=== PATIENT | male | born 1945 | race Caucasian/White ===

== ENCOUNTER → 2024-07-04 | Day surgery (SDC) | payer MEDICARE ==
[2024-07-03 12:39] LABS: BASOPHILS # (AUTO) 0.1 (0.0-0.1); BASOPHILS % 1.1 % (0.0-1.0); EOSINOPHILS # (AUTO) 0.1 (0.0-0.4); EOSINOPHILS % 1.9 % (0.0-6.0); HEMATOCRIT 41.2 % (38.2-49.6); HEMOGLOBIN 13.5 g/dL (14.0-18.0); LYMPHOCYTES # (AUTO) 1.7 (1.0-3.2); LYMPHOCYTES % 31.8 % (18.0-39.1); MEAN CORPUSCULAR HGB CONC 32.8 g/dL (31-35); MEAN CORPUSCULAR VOLUME 116.1 fL (81-99); MONOCYTES # (AUTO) 0.7 (0.2-0.8); MONOCYTES % 12.5 % (4.4-11.3); NEUTROPHILS # (AUTO) 2.7 (2.1-6.9); NEUTROPHILS % 52.1 % (38.7-80.0); PLATELET COUNT 117 x10e3/uL (140-360); RED BLOOD COUNT 3.55 x10e6/uL (4.3-5.7); RED CELL DISTRIBUTION WIDTH 13.2 % (11.7-14.4); WHITE BLOOD COUNT 5.22 x10e3/uL (4.8-10.8)
[~2024-07-04] MED LIST: ASPIRIN81 MG PO; ATORVASTATIN CA10 MG PO; CYCLOPENTOLATE HCL 2% OPTH SOLN 2 ML BTL OP ONE; FENTANYL CITRATE/PF 100MCG/2 ML INJ ONE; FLOMAX0.4 MG PO; FOLIC ACID0.8 MG PO; GATIFLOXACIN(OPTH) 5 ML LIQD ONE; JARDIANCE25 MG PO; LIDOCAINE HCL 2% LOCAL INJ 5 ML SDV VIAL INJ ONE; LISINOPRIL2.5 MG PO; METFORMIN HCL500 M2 PO; METOPROLOL SUCC50 MG PO; MIRTAZAPINE45 MG PO; MULTI-VITAMIN1 EACH PO; PANTOPRAZOLE SO40 MG PO; PHENYLEPHRINE HCL 2 ML DROPS ONE; PRESERVISION A1 EAC2 PO; PROPOFOL IV EMULSION 10 MG/ML 20 ML VIAL ONE; TESTOSTERO200 MG/1 M SQ; TETRACAINE HCL 0.5% OPTH SOLN 4 ML BTL ONE
[2024-07-04] MEDS: LACTATED RINGER'S 1,000 ML ONE (10:17)
[2024-07-04 12:09] VITALS: TEMP 97.6
[2024-07-04 12:25] VITALS: BP 112/78; PULSE 90; RESP 15; O2SAT 99
== END | disposition home or self-care (01) ==
LOC: OR 07:46 → EDSEX 11:00
PROVIDERS: ATTEND Ophthalmology
DX: H25.11 Age-related nuclear cataract, right eye (principal); H21.81 Floppy iris syndrome; E11.9 Type 2 diabetes mellitus without complications; I10 Essential (primary) hypertension; E78.5 Hyperlipidemia, unspecified; N28.9 Disorder of kidney and ureter, unspecified; F32.A Depression, unspecified; Z01.810 Encounter for preprocedural cardiovascular examination; Z01.812 Encounter for preprocedural laboratory examination; Z79.82 Long term (current) use of aspirin; Z79.84 Long term (current) use of oral hypoglycemic drugs; Z79.899 Other long term (current) drug therapy
CPT/HCPCS: 36415 ×2; 66982; 82948; 85025; 93005; J2003; J2704; J3010; J7121; V2632

== ENCOUNTER 2024-10-20 08:02 | Inpatient (IN) | payer MEDICARE ==
[2024-10-20] VITALS (15 sets, daily range): BP systolic 115–165; BP diastolic 65–99; PULSE 106–127; RESP 14–23; TEMP 97.9–99.4; O2SAT 92–100
[~2024-10-20] VITALS: Ht 154.9 cm; Wt 76.7 kg
[~2024-10-20 08:02] MED LIST changes: -CYCLOPENTOLATE HCL 2% OPTH SOLN 2 ML BTL OP ONE; -FENTANYL CITRATE/PF 100MCG/2 ML INJ ONE; -GATIFLOXACIN(OPTH) 5 ML LIQD ONE; -LIDOCAINE HCL 2% LOCAL INJ 5 ML SDV VIAL INJ ONE; -PHENYLEPHRINE HCL 2 ML DROPS ONE; -PROPOFOL IV EMULSION 10 MG/ML 20 ML VIAL ONE; -TETRACAINE HCL 0.5% OPTH SOLN 4 ML BTL ONE
[2024-10-20] MEDS ORDERED: ONDANSETRON HCL INJ 2MG/ML 2ML 2 MG/ML VIAL ONE (08:22)
[2024-10-20] MEDS: ONDANSETRON HCL INJ 2MG/ML 2ML 2 MG/ML VIAL IV STA (08:23)
[2024-10-20] MEDS: SODIUM CHLORIDE 0.9% 1000ML 1,000 ML IV ONE (08:23)
[2024-10-20] MEDS ORDERED: SODIUM CHLORIDE 0.9% 1000ML 1,000 ML ONE (08:23)
[2024-10-20 08:33] LABS: BASOPHILS # (AUTO) 0.1 (0.0-0.1); BASOPHILS % 0.6 % (0.0-1.0); EOSINOPHILS # (AUTO) 0.1 (0.0-0.4); EOSINOPHILS % 0.5 % (0.0-6.0); HEMATOCRIT 42.3 % (38.2-49.6); HEMOGLOBIN 14.1 g/dL (14.0-18.0); LYMPHOCYTES # (AUTO) 1.3 (1.0-3.2); LYMPHOCYTES % 10.4 % (18.0-39.1); MEAN CORPUSCULAR HEMOGLOBIN 36.2 pg (28-32); MEAN CORPUSCULAR HGB CONC 33.3 g/dL (31-35); MEAN CORPUSCULAR VOLUME 108.7 fL (81-99); MONOCYTES % 15.9 % (4.4-11.3); NEUTROPHILS % 71.5 % (38.7-80.0); PLATELET COUNT 176 x10e3/uL (140-360); RED BLOOD COUNT 3.89 x10e6/uL (4.3-5.7); RED CELL DISTRIBUTION WIDTH 12.4 % (11.7-14.4); WHITE BLOOD COUNT 12.54 x10e3/uL (4.8-10.8)
[2024-10-20 08:58] LABS: ALBUMIN 3.3 g/dL (3.5-5.0); ALBUMIN/GLOBULIN RATIO 0.8 (0.8-2.0); ANION GAP 29.4 mmol/L (8-16); BILIRUBIN,TOTAL 1.5 mg/dL (0.2-1.2); CALCIUM 9.7 mg/dL (8.4-10.2); CREATININE, SERUM 1.73 mg/dL (0.72-1.25); TOTAL PROTEIN 7.7 g/dL (6.5-8.1)
[2024-10-20 09:01] LABS: POTASSIUM 3.4 mmol/L (3.5-5.1)
[2024-10-20 09:30] LABS: ETHANOL < 10.0 mg/dL (0.0-10.0); SALICYLATE < 5.0 mg/dL (0-30)
[2024-10-20] MEDS ORDERED: IOPAMIDOL 370 MG/ML 100 ML INFUS..BTL INJ ONE (10:08)
[2024-10-20 10:44] LABS: PLATELET ESTIMATE ADEQUATE; PLATELET MORPHOLOGY COMMENT NORMAL; RBC MORPHOLOGY COMMENT NORMAL
[2024-10-20] MEDS ORDERED: ONDANSETRON HCL INJ 2MG/ML 2ML 2 MG/ML VIAL IV PRN (11:30)
[2024-10-20] MEDS ORDERED: DEXTROSE 50% SYRINGE 50 ML IV PRN ×2 (11:30→13:15)
[2024-10-20] MEDS: SODIUM CHLORIDE 0.9% 1000ML 1,000 ML IV SCH (12:03)
[2024-10-20 12:42] LABS: BILIRUBIN,URINE SMALL (NEGATIVE); CLARITY,URINE CLEAR (CLEAR); COLOR,URINE YELLOW (YELLOW); LEUKOCYTE ESTERASE ,URINE NEGATIVE (NEGATIVE); NITRITE,URINE NEGATIVE (NEGATIVE); PH,URINE 6 (5 - 7); PROTEIN,URINE DIPSTICK NEGATIVE (NEGATIVE); URINE UROBILINOGEN 0.2 mg/dL (0.2 - 1)
[2024-10-20 12:43] LABS: GLUCOSE, URINE 500 (NEGATIVE); KETONES,URINE >=160 (NEGATIVE)
[2024-10-20 12:54] LABS: EPITHELIAL CELLS,URINE FEW /LPF; WBC,URINE (MAN) 0-5 /HPF (0-5)
[2024-10-20 12:55] LABS: CALCIUM OXALATE CRYSTALS,UR FEW (FEW); MUCUS,URINE FEW
[2024-10-20] MEDS: INSULIN REGULAR, HUMAN 3ML VL 100 UNIT in SODIUM CHLORIDE 0.9% 99 ML IV SCH (12:57)
[2024-10-20] MEDS ORDERED: DIPHENHYDRAMINE HCL 25 MG CAP PO PRN (13:15)
[2024-10-20] MEDS ORDERED: HYDRALAZINE HCL 20 MG/ML VIAL IV PRN (13:15)
[2024-10-20] MEDS ORDERED: SIMETHICONE 80 MG CHEW PO PRN (13:15)
[2024-10-20] MEDS ORDERED: LIDOCAINE 4% PATCH TP PRN (13:15)
[2024-10-20] MEDS ORDERED: ALBUTEROL/IPRATROPIUM 3 ML NEB NEB PRN (13:15)
[2024-10-20] MEDS ORDERED: BENZONATATE 100 MG CAP PO PRN (13:15)
[2024-10-20] MEDS ORDERED: DOCUSATE SODIUM 100 MG CAP PO PRN (13:15)
[2024-10-20 13:31] LABS: ANION GAP 22.1 mmol/L (8-16); CALCIUM 8.6 mg/dL (8.4-10.2); CREATININE, SERUM 1.36 mg/dL (0.72-1.25); MAGNESIUM 1.4 MG/DL (1.3-2.1)
[2024-10-20 13:33] LABS: POTASSIUM 3.1 mmol/L (3.5-5.1)
[2024-10-20] MEDS: DEXTROSE 5%/0.45% SOD CHL 1,000 ML IV SCH (14:22)
[2024-10-20] MEDS ORDERED: ENOXAPARIN SOD INJ 40 MG/0.4 ML SYR SC SCH (17:00)
[2024-10-20] MEDS: ENOXAPARIN SOD INJ 40 MG/0.4 ML SYR SC SCH (17:55)
[2024-10-20 19:09] LABS: ANION GAP 17.8 mmol/L (8-16); CALCIUM 8.3 mg/dL (8.4-10.2); CREATININE, SERUM 1.21 mg/dL (0.72-1.25); MAGNESIUM 1.2 MG/DL (1.3-2.1)
[2024-10-20 19:14] LABS: POTASSIUM 2.8 mmol/L (3.5-5.1)
[2024-10-20] MEDS: POTASSIUM CHLORIDE 20MEQ/100ML 200 ML IV PRN (19:37)
[2024-10-20] MEDS: ATORVASTATIN 10 MG TAB PO SCH (21:41)
[2024-10-20] MEDS: MAGNESIUM SULF 1GRAM/DEXTROSE 100 ML IV PRN (23:40)
[2024-10-21] VITALS (27 sets, daily range): BP systolic 88–153; BP diastolic 52–97; PULSE 104–130; RESP 12–23; TEMP 98–99; O2SAT 90–100
[2024-10-21 01:11] LABS: CALCIUM 8.7 mg/dL (8.4-10.2); CREATININE, SERUM 1.1 mg/dL (0.72-1.25); MAGNESIUM 1.6 MG/DL (1.3-2.1)
[2024-10-21 04:56] LABS: BASOPHILS # (AUTO) 0.1 (0.0-0.1); BASOPHILS % 0.5 % (0.0-1.0); EOSINOPHILS % 0.1 % (0.0-6.0); HEMATOCRIT 33.8 % (38.2-49.6); HEMOGLOBIN 11.4 g/dL (14.0-18.0); LYMPHOCYTES % 10.1 % (18.0-39.1); MEAN CORPUSCULAR HEMOGLOBIN 36.7 pg (28-32); MEAN CORPUSCULAR HGB CONC 33.7 g/dL (31-35); MEAN CORPUSCULAR VOLUME 108.7 fL (81-99); MONOCYTES # (AUTO) 1.6 (0.2-0.8); MONOCYTES % 16.5 % (4.4-11.3); NEUTROPHILS # (AUTO) 7.1 (2.1-6.9); PLATELET COUNT 140 x10e3/uL (140-360); RED BLOOD COUNT 3.11 x10e6/uL (4.3-5.7); RED CELL DISTRIBUTION WIDTH 13.1 % (11.7-14.4); WHITE BLOOD COUNT 9.91 x10e3/uL (4.8-10.8)
[2024-10-21 05:17] LABS: ALBUMIN 2.7 g/dL (3.5-5.0); ALBUMIN/GLOBULIN RATIO 0.8 (0.8-2.0); ANION GAP 11.7 mmol/L (8-16); CALCIUM 8.7 mg/dL (8.4-10.2); CREATININE, SERUM 1.03 mg/dL (0.72-1.25); TOTAL PROTEIN 6.2 g/dL (6.5-8.1)
[2024-10-21 05:22] LABS: POTASSIUM 2.7 mmol/L (3.5-5.1)
[2024-10-21 05:58] LABS: THYROID STIMULATING HORMONE 0.755 uIU/mL (0.350-4.940)
[2024-10-21 06:23] LABS: ABG HCO3 17 mmol/L (22-26); ABG PCO2 30 mmHg (35-45); ABG PH 7.37 (7.35-7.45); ABG PO2 82 mmHg (80-105); ABG TCO2 18
[2024-10-21] MEDS: POTASSIUM CHLORIDE 20 MEQ TAB CR PO ONE (06:38)
[2024-10-21] MEDS ORDERED: PANTOPRAZOLE SOD 40 MG TABEC PO SCH (07:30)
[2024-10-21 07:44] LABS: BAND NEUTROPHILS % (MANUAL) 5 %; LYMPHOCYTES % (MANUAL) 12 % (19-48); MONOCYTES % (MANUAL) 13 % (3.4-9.0); NEUTROPHILS % (MANUAL) 70 % (40-74)
[2024-10-21 07:45] LABS: PLATELET ESTIMATE ADEQUATE; PLATELET MORPHOLOGY COMMENT NORMAL
[2024-10-21] MEDS: TAMSULOSIN HCL 0.4 MG CAP PO SCH (08:43)
[2024-10-21] MEDS: PANTOPRAZOLE SOD 40 MG TABEC PO SCH (08:43)
[2024-10-21 09:17] LABS: CALCIUM 8.5 mg/dL (8.4-10.2); CREATININE, SERUM 1.02 mg/dL (0.72-1.25); MAGNESIUM 1.4 MG/DL (1.3-2.1)
[2024-10-21] MEDS: MUPIROCIN 2% OINT 22 GM TUBE TOP SCH (12:00)
[2024-10-21] MEDS: POTASSIUM CHLORIDE 20MEQ/100ML 100 ML ONE (15:34)
[2024-10-21] MEDS: MELATONIN 5 MG TABLET PO PRN (20:21)
[2024-10-22] VITALS (23 sets, daily range): BP systolic 91–133; BP diastolic 59–85; PULSE 101–134; RESP 15–37; TEMP 98.4–99.8; O2SAT 92–100
[2024-10-22 02:12] LABS: BASOPHILS # (AUTO) 0.1 (0.0-0.1); BASOPHILS % 0.7 % (0.0-1.0); EOSINOPHILS % 0.3 % (0.0-6.0); HEMOGLOBIN 11.2 g/dL (14.0-18.0); LYMPHOCYTES # (AUTO) 1.1 (1.0-3.2); LYMPHOCYTES % 11.1 % (18.0-39.1); MEAN CORPUSCULAR HGB CONC 33.9 g/dL (31-35); MEAN CORPUSCULAR VOLUME 108.9 fL (81-99); MONOCYTES # (AUTO) 1.3 (0.2-0.8); MONOCYTES % 13.7 % (4.4-11.3); NEUTROPHILS # (AUTO) 6.8 (2.1-6.9); NEUTROPHILS % 72.2 % (38.7-80.0); PLATELET COUNT 160 x10e3/uL (140-360); RED BLOOD COUNT 3.03 x10e6/uL (4.3-5.7); RED CELL DISTRIBUTION WIDTH 12.1 % (11.7-14.4); WHITE BLOOD COUNT 9.46 x10e3/uL (4.8-10.8)
[2024-10-22 06:49] LABS: BASOPHILS # (AUTO) 0.1 (0.0-0.1); BASOPHILS % 0.5 % (0.0-1.0); EOSINOPHILS % 0.2 % (0.0-6.0); HEMATOCRIT 30.4 % (38.2-49.6); LYMPHOCYTES # (AUTO) 0.8 (1.0-3.2); LYMPHOCYTES % 9.1 % (18.0-39.1); MEAN CORPUSCULAR HEMOGLOBIN 36.4 pg (28-32); MEAN CORPUSCULAR HGB CONC 32.9 g/dL (31-35); MEAN CORPUSCULAR VOLUME 110.5 fL (81-99); MONOCYTES # (AUTO) 1.4 (0.2-0.8); NEUTROPHILS # (AUTO) 6.9 (2.1-6.9); NEUTROPHILS % 74.5 % (38.7-80.0); PLATELET COUNT 131 x10e3/uL (140-360); RED BLOOD COUNT 2.75 x10e6/uL (4.3-5.7); RED CELL DISTRIBUTION WIDTH 12.3 % (11.7-14.4); WHITE BLOOD COUNT 9.21 x10e3/uL (4.8-10.8)
[2024-10-22 07:35] LABS: ANION GAP 13.3 mmol/L (8-16); CALCIUM 8.3 mg/dL (8.4-10.2); CREATININE, SERUM 0.82 mg/dL (0.72-1.25)
[2024-10-22 07:37] LABS: POTASSIUM 3.3 mmol/L (3.5-5.1)
[2024-10-22 08:02] LABS: MAGNESIUM 1.2 MG/DL (1.3-2.1); PHOSPHORUS 0.9 MG/DL (2.3-4.7)
[2024-10-22] MEDS ORDERED: DEXTROSE 50% SYRINGE 50 ML IV PRN (08:15)
[2024-10-22] MEDS: MAGNESIUM SULFATE 2GM/50ML 50 ML IV ONE ×2 (08:27→15:35)
[2024-10-22] MEDS: POTASSIUM CHLORIDE 20 MEQ TAB CR PO ONE (08:28)
[2024-10-22] MEDS: SODIUM BICARBONATE 8.4% SYRING 50 ML in SODIUM CHLORIDE 0.45% 1,000 ML IV ONE (08:39)
[2024-10-22 09:58] LABS: BAND NEUTROPHILS % (MANUAL) 3 %; LYMPHOCYTES % (MANUAL) 12 % (19-48); MONOCYTES % (MANUAL) 10 % (3.4-9.0); NEUTROPHILS % (MANUAL) 75 % (40-74)
[2024-10-22 09:59] LABS: PLATELET ESTIMATE ADEQUATE; PLATELET MORPHOLOGY COMMENT NORMAL
[2024-10-22 10:09] LABS: LYMPHOCYTES % (MANUAL) 13 % (19-48); MONOCYTES % (MANUAL) 12 % (3.4-9.0); NEUTROPHILS % (MANUAL) 75 % (40-74); PLATELET ESTIMATE ADEQUATE; PLATELET MORPHOLOGY COMMENT NORMAL
[2024-10-22] MEDS: FUROSEMIDE INJ 10 MG/ML 4 ML VIAL IV ONE (10:55)
[2024-10-22] MEDS: INSULIN REGULAR, HUMAN 100 UNIT/1 ML SQ SCH (11:30)
[2024-10-22] MEDS ORDERED: ALBUTEROL/IPRATROPIUM 3 ML NEB NEB ONE (12:45)
[2024-10-22] MEDS: METOPROLOL SUCCINATE 50 MG TAB XL PO SCH (15:36)
[2024-10-22] MEDS: SODIUM BICARBONATE 8.4% VIAL 150 ML in DEXTROSE 5% 1,000 ML IV SCH (15:44)
[2024-10-22] MEDS: POTASSIUM PHOSPHATE 15 MM in SODIUM CHLORIDE 0.9% 250ML 250 ML IV ONE (15:44)
[2024-10-22] MEDS: LEVALBUTEROL HCL SOLN NEBU 1.25 MG/3 ML NEB INH PRN (16:04)
[2024-10-22] MEDS ORDERED: SODIUM CHLORIDE 0.9% 100 ML ONE (18:21)
[2024-10-22] MEDS ORDERED: IOPAMIDOL 370 MG/ML 100 ML INFUS..BTL INJ ONE (18:22)
[2024-10-22] MEDS: SODIUM BICARBONATE 8.4% SYRING 0 ML ONE (22:53)
[2024-10-22] MEDS: DEXTROSE 5% 0 ML IV ONE (22:54)
[2024-10-23] VITALS (25 sets, daily range): BP systolic 81–118; BP diastolic 51–94; PULSE 89–123; RESP 15–24; TEMP 97–98.7; O2SAT 91–100
[2024-10-23 06:23] LABS: BASOPHILS % 0.4 % (0.0-1.0); EOSINOPHILS % 0.1 % (0.0-6.0); HEMATOCRIT 25.5 % (38.2-49.6); HEMOGLOBIN 8.9 g/dL (14.0-18.0); LYMPHOCYTES # (AUTO) 0.7 (1.0-3.2); LYMPHOCYTES % 7.4 % (18.0-39.1); MEAN CORPUSCULAR HEMOGLOBIN 36.6 pg (28-32); MEAN CORPUSCULAR HGB CONC 34.9 g/dL (31-35); MEAN CORPUSCULAR VOLUME 104.9 fL (81-99); MONOCYTES # (AUTO) 1.1 (0.2-0.8); MONOCYTES % 11.9 % (4.4-11.3); NEUTROPHILS # (AUTO) 7.1 (2.1-6.9); NEUTROPHILS % 79.4 % (38.7-80.0); PLATELET COUNT 134 x10e3/uL (140-360); RED BLOOD COUNT 2.43 x10e6/uL (4.3-5.7); RED CELL DISTRIBUTION WIDTH 12.2 % (11.7-14.4); WHITE BLOOD COUNT 8.94 x10e3/uL (4.8-10.8)
[2024-10-23 07:00] LABS: ALBUMIN 2.3 g/dL (3.5-5.0); ALBUMIN/GLOBULIN RATIO 0.7 (0.8-2.0); ANION GAP 14.7 mmol/L (8-16); BILIRUBIN,TOTAL 0.7 mg/dL (0.2-1.2); CALCIUM 8.3 mg/dL (8.4-10.2); CREATININE, SERUM 1.08 mg/dL (0.72-1.25); POTASSIUM 3.7 mmol/L (3.5-5.1); TOTAL PROTEIN 5.5 g/dL (6.5-8.1)
[2024-10-23 07:15] LABS: PHOSPHORUS 1.8 MG/DL (2.3-4.7)
[2024-10-23 10:42] LABS: LYMPHOCYTES % (MANUAL) 12 % (19-48); MONOCYTES % (MANUAL) 7 % (3.4-9.0); NEUTROPHILS % (MANUAL) 81 % (40-74); PLATELET ESTIMATE SLIGHTLY DECREASED; PLATELET MORPHOLOGY COMMENT NORMAL; RBC MORPHOLOGY COMMENT NORMAL
[2024-10-23] MEDS ORDERED: ALBUMIN 25% 25GM 100ML 0.25 GM/ML BTL IV ONE (12:00)
[2024-10-23] MEDS: ALBUMIN 25% 25GM 100ML 100 ML IV ONE (12:14)
[2024-10-23 13:18] LABS: HEMOGLOBIN 7.8 g/dL (14.0-18.0)
[2024-10-23] MEDS: MIDODRINE HCL 5 MG TABLET PO SCH (13:28)
[2024-10-23] MEDS: SODIUM CHLORIDE 0.9% 500ML 500 ML IV ONE (13:28)
[2024-10-23] MEDS: SODIUM BICARBONATE 650 MG TAB PO SCH (16:56)
[2024-10-23 18:00] LABS: BASOPHILS % 0.1 % (0.0-1.0); EOSINOPHILS % 0.5 % (0.0-6.0); HEMATOCRIT 22.4 % (38.2-49.6); HEMOGLOBIN 7.6 g/dL (14.0-18.0); LYMPHOCYTES # (AUTO) 0.6 (1.0-3.2); LYMPHOCYTES % 7.4 % (18.0-39.1); MEAN CORPUSCULAR HEMOGLOBIN 35.7 pg (28-32); MEAN CORPUSCULAR HGB CONC 33.9 g/dL (31-35); MEAN CORPUSCULAR VOLUME 105.2 fL (81-99); MONOCYTES # (AUTO) 0.9 (0.2-0.8); MONOCYTES % 11.4 % (4.4-11.3); NEUTROPHILS # (AUTO) 6.3 (2.1-6.9); NEUTROPHILS % 79.5 % (38.7-80.0); PLATELET COUNT 117 x10e3/uL (140-360); RED BLOOD COUNT 2.13 x10e6/uL (4.3-5.7); RED CELL DISTRIBUTION WIDTH 12.5 % (11.7-14.4); WHITE BLOOD COUNT 7.98 x10e3/uL (4.8-10.8)
[2024-10-23 18:14] LABS: INR 1.2; PROTHROMBIN TIME 16.3 seconds (11.9-14.5)
[2024-10-24] VITALS (13 sets, daily range): BP systolic 96–133; BP diastolic 68–79; PULSE 112–119; RESP 16–25; TEMP 98.3–99.9; O2SAT 93–99
[2024-10-24] MEDS: THIAMINE HCL INJ 100 MG/ML 2ML VIAL IV ONE (03:13)
[2024-10-24 06:57] LABS: BASOPHILS % 0.4 % (0.0-1.0); EOSINOPHILS # (AUTO) 0.1 (0.0-0.4); EOSINOPHILS % 0.7 % (0.0-6.0); HEMATOCRIT 21.7 % (38.2-49.6); HEMOGLOBIN 7.5 g/dL (14.0-18.0); LYMPHOCYTES # (AUTO) 0.5 (1.0-3.2); MEAN CORPUSCULAR HEMOGLOBIN 36.8 pg (28-32); MEAN CORPUSCULAR HGB CONC 34.6 g/dL (31-35); MEAN CORPUSCULAR VOLUME 106.4 fL (81-99); MONOCYTES % 12.1 % (4.4-11.3); NEUTROPHILS # (AUTO) 6.4 (2.1-6.9); NEUTROPHILS % 79.3 % (38.7-80.0); PLATELET COUNT 114 x10e3/uL (140-360); RED BLOOD COUNT 2.04 x10e6/uL (4.3-5.7); RED CELL DISTRIBUTION WIDTH 12.4 % (11.7-14.4); WHITE BLOOD COUNT 8.02 x10e3/uL (4.8-10.8)
[2024-10-24 07:41] LABS: ALBUMIN 2.7 g/dL (3.5-5.0); ALBUMIN/GLOBULIN RATIO 0.9 (0.8-2.0); ANION GAP 15.2 mmol/L (8-16); CALCIUM 8.4 mg/dL (8.4-10.2); CREATININE, SERUM 0.87 mg/dL (0.72-1.25); MAGNESIUM 1.5 MG/DL (1.3-2.1); TOTAL PROTEIN 5.7 g/dL (6.5-8.1)
[2024-10-24 07:43] LABS: POTASSIUM 3.2 mmol/L (3.5-5.1)
[2024-10-24 07:53] LABS: BAND NEUTROPHILS % (MANUAL) 2 %; BASOPHILS % (MANUAL) 1 % (0-1.5); LYMPHOCYTES % (MANUAL) 3 % (19-48); MONOCYTES % (MANUAL) 4 % (3.4-9.0); NEUTROPHILS % (MANUAL) 90 % (40-74)
[2024-10-24 07:54] LABS: PLATELET ESTIMATE SLIGHTLY DECREASED; PLATELET MORPHOLOGY COMMENT NORMAL; RBC MORPHOLOGY COMMENT NORMAL
[2024-10-24 08:03] LABS: THYROID STIMULATING HORMONE 1.255 uIU/mL (0.350-4.940)
[2024-10-24] MEDS ORDERED: PIPERACILLIN/TAZOBACTAM 3.375 GM VIAL ONE (10:14)
[2024-10-24] MEDS: THIAMINE HCL INJ 100 MG/ML 2ML VIAL IV SCH (10:16)
[2024-10-24] MEDS: POTASSIUM PHOSPHATE 15 MM in SODIUM CHLORIDE 0.9% 250ML 250 ML IV ONE (19:51)
[2024-10-25] VITALS (9 sets, daily range): BP systolic 111–133; BP diastolic 64–90; PULSE 103–116; RESP 18–21; TEMP 98.3–100.9; O2SAT 95–100
[2024-10-25 07:49] LABS: BASOPHILS % 0.1 % (0.0-1.0); EOSINOPHILS # (AUTO) 0.1 (0.0-0.4); EOSINOPHILS % 1.1 % (0.0-6.0); HEMATOCRIT 22.5 % (38.2-49.6); HEMOGLOBIN 7.8 g/dL (14.0-18.0); LYMPHOCYTES # (AUTO) 0.6 (1.0-3.2); LYMPHOCYTES % 6.7 % (18.0-39.1); MEAN CORPUSCULAR HEMOGLOBIN 36.6 pg (28-32); MEAN CORPUSCULAR HGB CONC 34.7 g/dL (31-35); MEAN CORPUSCULAR VOLUME 105.6 fL (81-99); MONOCYTES # (AUTO) 1.2 (0.2-0.8); MONOCYTES % 13.3 % (4.4-11.3); NEUTROPHILS # (AUTO) 7.3 (2.1-6.9); NEUTROPHILS % 78.4 % (38.7-80.0); PLATELET COUNT 125 x10e3/uL (140-360); RED BLOOD COUNT 2.13 x10e6/uL (4.3-5.7); RED CELL DISTRIBUTION WIDTH 12.6 % (11.7-14.4); WHITE BLOOD COUNT 9.29 x10e3/uL (4.8-10.8)
[2024-10-25 08:35] LABS: INR 1.12; PROTHROMBIN TIME 15.4 seconds (11.9-14.5)
[2024-10-25 08:39] LABS: ANION GAP 16.1 mmol/L (8-16); CALCIUM 8.3 mg/dL (8.4-10.2); CREATININE, SERUM 0.84 mg/dL (0.72-1.25)
[2024-10-25 08:40] LABS: POTASSIUM 3.1 mmol/L (3.5-5.1)
[2024-10-25 09:00] LABS: LYMPHOCYTES % (MANUAL) 9 % (19-48); MONOCYTES % (MANUAL) 5 % (3.4-9.0); NEUTROPHILS % (MANUAL) 85 % (40-74); PLATELET ESTIMATE SLIGHTLY DECREASED; PLATELET MORPHOLOGY COMMENT NORMAL; REACTIVE LYMPHOCYTES 1
[2024-10-25 09:01] LABS: RBC MORPHOLOGY COMMENT NORMAL
[2024-10-25 11:16] LABS: MAGNESIUM 1.4 MG/DL (1.3-2.1); PHOSPHORUS 2.7 MG/DL (2.3-4.7)
[2024-10-25] MEDS ORDERED: PROPOFOL IV EMULSION 10 MG/ML 20 ML VIAL ONE (14:41)
[2024-10-25] MEDS ORDERED: LIDOCAINE HCL 2% LOCAL INJ 5 ML SDV VIAL INJ ONE (14:41)
[2024-10-25] MEDS ORDERED: PHENYLEPHRINE HCL 1% 10 MG/ML VIAL ONE (15:07)
[2024-10-25] MEDS ORDERED: SODIUM CHLORIDE 0.9% 100 ML ONE (15:07)
[2024-10-25] MEDS: SODIUM CHLORIDE 0.9% 250ML 250 ML ONE (16:42)
[2024-10-25] MEDS ORDERED: ACETAMINOPHEN 650 MG SUPP PR PRN (23:00)
[2024-10-26] VITALS (10 sets, daily range): BP systolic 123–138; BP diastolic 79–85; PULSE 97–114; RESP 17–20; TEMP 97.5–98.6; O2SAT 96–99
[2024-10-26] MEDS: ACETAMINOPHEN 1000 MG/100 ML IV PRN (00:14)
[2024-10-26] MEDS: SODIUM CHLORIDE 0.9% 1000ML 500 ML IV ONE (16:14)
[2024-10-26] MEDS: SODIUM CHLORIDE 0.9% 500ML 500 ML IV ONE (16:14)
[2024-10-27] VITALS (12 sets, daily range): BP systolic 110–132; BP diastolic 61–88; PULSE 92–112; RESP 17–21; TEMP 98–99.1; O2SAT 95–100
[2024-10-27 08:47] LABS: BASOPHILS # (AUTO) 0.1 (0.0-0.1); BASOPHILS % 0.5 % (0.0-1.0); EOSINOPHILS # (AUTO) 0.1 (0.0-0.4); EOSINOPHILS % 0.9 % (0.0-6.0); HEMATOCRIT 28.7 % (38.2-49.6); HEMOGLOBIN 9.4 g/dL (14.0-18.0); LYMPHOCYTES # (AUTO) 1.1 (1.0-3.2); MEAN CORPUSCULAR HEMOGLOBIN 35.7 pg (28-32); MEAN CORPUSCULAR HGB CONC 32.8 g/dL (31-35); MEAN CORPUSCULAR VOLUME 109.1 fL (81-99); MONOCYTES # (AUTO) 0.9 (0.2-0.8); MONOCYTES % 8.5 % (4.4-11.3); NEUTROPHILS # (AUTO) 8.6 (2.1-6.9); NEUTROPHILS % 78.9 % (38.7-80.0); PLATELET COUNT 194 x10e3/uL (140-360); RED BLOOD COUNT 2.63 x10e6/uL (4.3-5.7); RED CELL DISTRIBUTION WIDTH 13.1 % (11.7-14.4); WHITE BLOOD COUNT 10.88 x10e3/uL (4.8-10.8)
[2024-10-27 09:20] LABS: ANION GAP 18.8 mmol/L (8-16); CALCIUM 8.9 mg/dL (8.4-10.2); CREATININE, SERUM 0.91 mg/dL (0.72-1.25)
[2024-10-27 09:23] LABS: POTASSIUM 2.8 mmol/L (3.5-5.1)
[2024-10-27] MEDS: KCL 20 MEQ PACKET/ ORAL SOLN PEG STA (09:40)
[2024-10-27] MEDS: DEXTROSE 5% 1,000 ML IV SCH (10:39)
[2024-10-27] MEDS: ENOXAPARIN SOD INJ 40 MG/0.4 ML SYR SC SCH (17:35)
[2024-10-27] MEDS: KCL 20 MEQ PACKET/ ORAL SOLN NG ONE (17:35)
[2024-10-28] VITALS (12 sets, daily range): BP systolic 97–132; BP diastolic 55–78; PULSE 54–104; RESP 16–20; TEMP 98.1–99; O2SAT 96–100
[2024-10-28 06:12] LABS: BASOPHILS % 0.4 % (0.0-1.0); EOSINOPHILS # (AUTO) 0.1 (0.0-0.4); EOSINOPHILS % 1.6 % (0.0-6.0); HEMATOCRIT 24.7 % (38.2-49.6); HEMOGLOBIN 8.1 g/dL (14.0-18.0); LYMPHOCYTES # (AUTO) 1.4 (1.0-3.2); LYMPHOCYTES % 15.2 % (18.0-39.1); MEAN CORPUSCULAR HEMOGLOBIN 35.5 pg (28-32); MEAN CORPUSCULAR HGB CONC 32.8 g/dL (31-35); MEAN CORPUSCULAR VOLUME 108.3 fL (81-99); MONOCYTES # (AUTO) 0.8 (0.2-0.8); MONOCYTES % 8.4 % (4.4-11.3); NEUTROPHILS # (AUTO) 6.6 (2.1-6.9); NEUTROPHILS % 73.6 % (38.7-80.0); PLATELET COUNT 170 x10e3/uL (140-360); RED BLOOD COUNT 2.28 x10e6/uL (4.3-5.7); RED CELL DISTRIBUTION WIDTH 13.2 % (11.7-14.4)
[2024-10-28 06:24] LABS: ANION GAP 13.8 mmol/L (8-16); CALCIUM 8.6 mg/dL (8.4-10.2); CREATININE, SERUM 0.98 mg/dL (0.72-1.25); POTASSIUM 3.8 mmol/L (3.5-5.1)
[2024-10-28] MEDS: ACETAMINOPHEN 325 MG TAB PO PRN (12:04)
[2024-10-29] VITALS (9 sets, daily range): BP systolic 92–131; BP diastolic 49–70; PULSE 87–99; RESP 16–20; TEMP 97.9–100.3; O2SAT 95–98
[2024-10-29 06:15] LABS: BASOPHILS # (AUTO) 0.1 (0.0-0.1); BASOPHILS % 0.6 % (0.0-1.0); EOSINOPHILS # (AUTO) 0.2 (0.0-0.4); EOSINOPHILS % 2.1 % (0.0-6.0); HEMATOCRIT 26.4 % (38.2-49.6); HEMOGLOBIN 8.4 g/dL (14.0-18.0); LYMPHOCYTES # (AUTO) 1.2 (1.0-3.2); LYMPHOCYTES % 13.2 % (18.0-39.1); MEAN CORPUSCULAR HEMOGLOBIN 35.9 pg (28-32); MEAN CORPUSCULAR HGB CONC 31.8 g/dL (31-35); MEAN CORPUSCULAR VOLUME 112.8 fL (81-99); MONOCYTES # (AUTO) 0.5 (0.2-0.8); MONOCYTES % 6.1 % (4.4-11.3); NEUTROPHILS # (AUTO) 6.8 (2.1-6.9); NEUTROPHILS % 77.5 % (38.7-80.0); PLATELET COUNT 174 x10e3/uL (140-360); RED BLOOD COUNT 2.34 x10e6/uL (4.3-5.7); RED CELL DISTRIBUTION WIDTH 13.5 % (11.7-14.4); WHITE BLOOD COUNT 8.72 x10e3/uL (4.8-10.8)
[2024-10-29 06:42] LABS: ANION GAP 14.1 mmol/L (8-16); CALCIUM 8.5 mg/dL (8.4-10.2); CREATININE, SERUM 1.13 mg/dL (0.72-1.25); MAGNESIUM 1.6 MG/DL (1.3-2.1); PHOSPHORUS 1.9 MG/DL (2.3-4.7); POTASSIUM 4.1 mmol/L (3.5-5.1)
[2024-10-29 07:20] LABS: % IRON SATURATION 13 % (15-50); IRON 20 ug/dL (65-175); TOTAL IRON BINDING CAPACITY 154 ug/dL (261-478); TRANSFERRIN 110 mg/dL (174-364)
[2024-10-29 09:47] LABS: EOSINOPHILS % (MANUAL) 3 % (0-7); LYMPHOCYTES % (MANUAL) 15 % (19-48); MONOCYTES % (MANUAL) 11 % (3.4-9.0); NEUTROPHILS % (MANUAL) 71 % (40-74); PLATELET ESTIMATE ADEQUATE; PLATELET MORPHOLOGY COMMENT NORMAL; RBC MORPHOLOGY COMMENT ABNORMAL
[2024-10-29] MEDS: LACTATED RINGER'S 1,000 ML INJ ONE (12:49)
[2024-10-29] MEDS: METOCLOPRAMIDE HCL 10 MG/2ML VIAL IV ONE (12:49)
[2024-10-29] MEDS ORDERED: POTASSIUM PHOSPHATE 15 MM in SODIUM CHLORIDE 0.9% 250ML 250 ML IV SCH (14:15)
[2024-10-29 18:28] LABS: CLARITY,URINE SL CLOUDY (CLEAR); COLOR,URINE YELLOW (YELLOW); GLUCOSE, URINE NEGATIVE (NEGATIVE); LEUKOCYTE ESTERASE ,URINE NEGATIVE (NEGATIVE); NITRITE,URINE NEGATIVE (NEGATIVE); PH,URINE 7 (5 - 7); PROTEIN,URINE DIPSTICK TRACE (NEGATIVE)
[2024-10-29 18:29] LABS: BILIRUBIN,URINE NEGATIVE (NEGATIVE); KETONES,URINE NEGATIVE (NEGATIVE); URINE UROBILINOGEN 0.2 mg/dL (0.2 - 1)
[2024-10-29] MEDS: METOCLOPRAMIDE HCL 10 MG/2ML VIAL IV SCH (18:30)
[2024-10-29 18:40] LABS: BACTERIA,URINE RARE /HPF; RBC,URINE 21-50 /HPF (0-5); RENAL EPITHELIAL CELLS,URINE RARE
[2024-10-29] MEDS: POTASSIUM PHOSPHATE 15 MM in SODIUM CHLORIDE 0.9% 250ML 250 ML IV SCH (19:08)
[2024-10-30] VITALS (9 sets, daily range): BP systolic 101–126; BP diastolic 51–75; PULSE 93–111; RESP 17–20; TEMP 97.6–99.1; O2SAT 95–100
[2024-10-30 05:20] LABS: BASOPHILS % 0.5 % (0.0-1.0); EOSINOPHILS # (AUTO) 0.2 (0.0-0.4); HEMATOCRIT 24.7 % (38.2-49.6); LYMPHOCYTES # (AUTO) 1.3 (1.0-3.2); LYMPHOCYTES % 15.8 % (18.0-39.1); MEAN CORPUSCULAR HEMOGLOBIN 35.3 pg (28-32); MEAN CORPUSCULAR HGB CONC 31.6 g/dL (31-35); MEAN CORPUSCULAR VOLUME 111.8 fL (81-99); MONOCYTES # (AUTO) 0.5 (0.2-0.8); MONOCYTES % 6.7 % (4.4-11.3); NEUTROPHILS % 74.4 % (38.7-80.0); PLATELET COUNT 171 x10e3/uL (140-360); RED BLOOD COUNT 2.21 x10e6/uL (4.3-5.7); RED CELL DISTRIBUTION WIDTH 13.5 % (11.7-14.4); WHITE BLOOD COUNT 8.03 x10e3/uL (4.8-10.8)
[2024-10-30 05:26] LABS: HEMOGLOBIN 7.8 g/dL (14.0-18.0)
[2024-10-30 05:42] LABS: ANION GAP 13.6 mmol/L (8-16); CALCIUM 8.5 mg/dL (8.4-10.2); CREATININE, SERUM 1.08 mg/dL (0.72-1.25); MAGNESIUM 1.6 MG/DL (1.3-2.1); PHOSPHORUS 3.8 MG/DL (2.3-4.7); POTASSIUM 4.6 mmol/L (3.5-5.1)
[2024-10-30] MEDS: IRON SUCROSE 100 MG in SODIUM CHLORIDE 0.9% 100 ML IV SCH (09:27)
[2024-10-30] MEDS: HYDROCODONE/APAP 5MG-325MG TAB PO PRN (11:50)
[2024-10-30] MEDS ORDERED: IOPAMIDOL 370 MG/ML 100 ML INFUS..BTL INJ ONE (13:23)
[2024-10-30] MEDS: PYRIDOSTIGMINE BROMIDE 60 MG TAB PO SCH (14:11)
[2024-10-30] MEDS ORDERED: TAMSULOSIN HCL 0.4 MG CAP PEG SCH (21:00)
[2024-10-31] VITALS (10 sets, daily range): BP systolic 102–123; BP diastolic 61–87; PULSE 69–104; RESP 12–22; TEMP 97.7–99.6; O2SAT 93–100
[2024-10-31 06:49] LABS: BASOPHILS % 0.4 % (0.0-1.0); EOSINOPHILS # (AUTO) 0.1 (0.0-0.4); HEMATOCRIT 24.6 % (38.2-49.6); HEMOGLOBIN 7.7 g/dL (14.0-18.0); LYMPHOCYTES # (AUTO) 1.2 (1.0-3.2); LYMPHOCYTES % 16.8 % (18.0-39.1); MEAN CORPUSCULAR HGB CONC 31.3 g/dL (31-35); MEAN CORPUSCULAR VOLUME 111.8 fL (81-99); MONOCYTES # (AUTO) 0.6 (0.2-0.8); NEUTROPHILS # (AUTO) 5.1 (2.1-6.9); NEUTROPHILS % 72.1 % (38.7-80.0); PLATELET COUNT 189 x10e3/uL (140-360); RED CELL DISTRIBUTION WIDTH 13.6 % (11.7-14.4); WHITE BLOOD COUNT 7.04 x10e3/uL (4.8-10.8)
[2024-10-31 07:38] LABS: ANION GAP 13.3 mmol/L (8-16); CALCIUM 8.5 mg/dL (8.4-10.2); CREATININE, SERUM 1.04 mg/dL (0.72-1.25); POTASSIUM 4.3 mmol/L (3.5-5.1)
[2024-10-31] MEDS: TAMSULOSIN HCL 0.4 MG CAP PEG SCH (08:24)
[2024-10-31] MEDS ORDERED: LIDOCAINE HCL 2% LOCAL INJ 5 ML SDV VIAL INJ ONE (08:27)
[2024-10-31] MEDS ORDERED: SEVOFLURANE INHAL SOLN 250 ML PEN BTL ONE (08:27)
[2024-10-31] MEDS ORDERED: FENTANYL CITRATE/PF 100MCG/2 ML INJ ONE (08:27)
[2024-10-31] MEDS ORDERED: PROPOFOL IV EMULSION 10 MG/ML 20 ML VIAL ONE (08:27)
[2024-10-31] MEDS ORDERED: PHENYLEPHRINE HCL 1% 10 MG/ML VIAL ONE (09:11)
[2024-10-31] MEDS ORDERED: FAMOTIDINE 20 MG/2 ML VIAL IV ONE (09:20)
[2024-10-31] MEDS ORDERED: ONDANSETRON HCL INJ 2MG/ML 2ML 2 MG/ML VIAL ONE (09:20)
[2024-10-31] MEDS ORDERED: ACETAMINOPHEN 1000 MG/100 ML 100 ML IV ONE (09:20)
[2024-10-31 09:34] LABS: PLATELET ESTIMATE ADEQUATE; PLATELET MORPHOLOGY COMMENT NORMAL; RBC MORPHOLOGY COMMENT NORMAL
[2024-10-31] MEDS ORDERED: NOREPINEPHRINE 8 MG/D5W 250 ML 250 ML ONE (09:34)
[2024-10-31 10:34] LABS: HEPATITIS A ANTIBODY IGM (P) Negative; HEPATITIS B CORE IGM (P) Negative; HEPATITIS B SURFACE AG (P) Negative
[2024-10-31 10:38] LABS: HEPATITIS C ANTIBODY Non Reactive
[2024-10-31] MEDS: METOLAZONE 5 MG TAB PEG ONE (16:09)
[2024-11-01] VITALS (12 sets, daily range): BP systolic 96–117; BP diastolic 53–67; PULSE 70–113; RESP 12–20; TEMP 97.6–99.7; O2SAT 93–100
[2024-11-01 06:07] LABS: BASOPHILS % 0.3 % (0.0-1.0); EOSINOPHILS # (AUTO) 0.2 (0.0-0.4); EOSINOPHILS % 2.9 % (0.0-6.0); HEMATOCRIT 22.2 % (38.2-49.6); HEMOGLOBIN 7.2 g/dL (14.0-18.0); LYMPHOCYTES # (AUTO) 1.2 (1.0-3.2); LYMPHOCYTES % 19.2 % (18.0-39.1); MEAN CORPUSCULAR HEMOGLOBIN 35.3 pg (28-32); MEAN CORPUSCULAR HGB CONC 32.4 g/dL (31-35); MEAN CORPUSCULAR VOLUME 108.8 fL (81-99); MONOCYTES # (AUTO) 0.7 (0.2-0.8); MONOCYTES % 10.5 % (4.4-11.3); NEUTROPHILS # (AUTO) 4.2 (2.1-6.9); NEUTROPHILS % 66.5 % (38.7-80.0); RED BLOOD COUNT 2.04 x10e6/uL (4.3-5.7); RED CELL DISTRIBUTION WIDTH 13.5 % (11.7-14.4)
[2024-11-01 06:12] LABS: PLATELET COUNT 192 x10e3/uL (140-360)
[2024-11-01 06:33] LABS: ANION GAP 12.3 mmol/L (8-16); CALCIUM 8.1 mg/dL (8.4-10.2); CREATININE, SERUM 1.07 mg/dL (0.72-1.25)
[2024-11-01 06:35] LABS: POTASSIUM 3.3 mmol/L (3.5-5.1)
[2024-11-01 07:54] LABS: EOSINOPHILS % (MANUAL) 10 % (0-7); HYPOCHROMASIA SLIGHT; LYMPHOCYTES % (MANUAL) 20 % (19-48); MONOCYTES % (MANUAL) 11 % (3.4-9.0); NEUTROPHILS % (MANUAL) 59 % (40-74); PLATELET ESTIMATE ADEQUATE; PLATELET MORPHOLOGY COMMENT NORMAL
[2024-11-01] MEDS: POTASSIUM CHLORIDE 20 MEQ TAB CR PO PRN (08:43)
[2024-11-01] MEDS ORDERED: SODIUM CHLORIDE 0.9% 250ML 250 ML IV ONE (13:30)
[2024-11-01] MEDS ORDERED: KCL 20 MEQ PACKET/ ORAL SOLN PEG ONE (15:15)
[2024-11-01] MEDS ORDERED: OLANZAPINE 10 MG VIAL ONE (21:08)
[2024-11-01] MEDS: OLANZAPINE 10 MG VIAL IM ONE (21:16)
[2024-11-01] MEDS: LOPERAMIDE HCL 2 MG/15 ML UDC PEG PRN (22:08)
[2024-11-02] VITALS (8 sets, daily range): BP systolic 67–124; BP diastolic 49–79; PULSE 90–100; RESP 16–20; TEMP 97–99.4; O2SAT 97–100
[2024-11-02] MEDS ORDERED: OLANZAPINE 10 MG VIAL IM ONE (07:15)
[2024-11-02 12:35] LABS: HEMATOCRIT 28.4 % (38.2-49.6); HEMOGLOBIN 9.4 g/dL (14.0-18.0)
[2024-11-02 12:56] LABS: ANION GAP 12.4 mmol/L (8-16); CALCIUM 8.5 mg/dL (8.4-10.2); CREATININE, SERUM 1.02 mg/dL (0.72-1.25); POTASSIUM 4.4 mmol/L (3.5-5.1)
[2024-11-02] MEDS: SODIUM CHLORIDE 0.9% 1000ML 500 ML IV ONE (19:06)
[2024-11-03 04:10] VITALS: BP 110/57; PULSE 92; RESP 18; TEMP 98.1; O2SAT 95
[2024-11-03 06:30] VITALS: PULSE 85; RESP 22; O2SAT 97
[2024-11-03 08:19] VITALS: BP 99/64; PULSE 96; RESP 18; TEMP 99.1; O2SAT 98
[2024-11-03 12:42] VITALS: BP 100/58; PULSE 95; RESP 18; TEMP 98.3; O2SAT 98
[2024-11-03] MEDS ORDERED: DIPHENOXYLATE/ATROPINE TAB PO SCH (21:00)
[2024-11-18 14:48] LABS: ACETYLCHOLINE RECEPTOR BLOCKIN 20
[2024-11-18 14:50] LABS: ACETYLCHOLINE RECEPTOR MODULAT 3; ANTI-STRIATED MUSCLE AB Negative
== END 2024-11-03 15:40 | DRG 987 ==
LOC: ER 08:06 → ERHOLD 11:27 → ICU 16:32 → MED/SURG2 10-24 18:10
PROVIDERS: ADMIT Internal Medicine; ATTEND Internal Medicine
PROC: 4A133R1 Monitoring of Arterial Saturation, Peripheral, Percutaneous Approach (ICD-10-PCS; principal; 2024-10-20)
PROC: 30233K1 Transfusion of Nonautologous Frozen Plasma into Peripheral Vein, Percutaneous Approach (ICD-10-PCS; 2024-10-23)
PROC: 0DH63UZ Insertion of Feeding Device into Stomach, Percutaneous Approach (ICD-10-PCS; 2024-10-25)
PROC: 0DB68ZX Excision of Stomach, Via Natural or Artificial Opening Endoscopic, Diagnostic (ICD-10-PCS; 2024-10-25)
PROC: 0T788DZ Dilation of Bilateral Ureters with Intraluminal Device, Via Natural or Artificial Opening Endoscopic (ICD-10-PCS; 2024-10-31)
PROC: 0VNTXZZ Release Prepuce, External Approach (ICD-10-PCS; 2024-10-31)
PROC: 0TCB8ZZ Extirpation of Matter from Bladder, Via Natural or Artificial Opening Endoscopic (ICD-10-PCS; 2024-10-31)
PROC: 0TC78ZZ Extirpation of Matter from Left Ureter, Via Natural or Artificial Opening Endoscopic (ICD-10-PCS; 2024-10-31)
PROC: BT141ZZ Fluoroscopy of Kidneys, Ureters and Bladder using Low Osmolar Contrast (ICD-10-PCS; 2024-10-31)
PROC: 30233N1 Transfusion of Nonautologous Red Blood Cells into Peripheral Vein, Percutaneous Approach (ICD-10-PCS; 2024-11-02)
DX: E11.10 Type 2 diabetes mellitus with ketoacidosis without coma (principal); J69.0 Pneumonitis due to inhalation of food and vomit; K22.11 Ulcer of esophagus with bleeding; K21.01 Gastro-esophageal reflux disease with esophagitis, with bleeding; J90 Pleural effusion, not elsewhere classified; D68.9 Coagulation defect, unspecified; I47.10 Supraventricular tachycardia, unspecified; D62 Acute posthemorrhagic anemia; N13.2 Hydronephrosis with renal and ureteral calculous obstruction; K76.6 Portal hypertension; N17.9 Acute kidney failure, unspecified; E11.22 Type 2 diabetes mellitus with diabetic chronic kidney disease; E11.649 Type 2 diabetes mellitus with hypoglycemia without coma; E11.42 Type 2 diabetes mellitus with diabetic polyneuropathy; E83.39 Other disorders of phosphorus metabolism; R13.12 Dysphagia, oropharyngeal phase; K70.30 Alcoholic cirrhosis of liver without ascites; I12.9 Hypertensive chronic kidney disease with stage 1 through stage 4 chronic kidney disease, or unspecified chronic kidney disease; N40.1 Benign prostatic hyperplasia with lower urinary tract symptoms; E78.5 Hyperlipidemia, unspecified; N18.30 Chronic kidney disease, stage 3 unspecified; E86.0 Dehydration; I65.22 Occlusion and stenosis of left carotid artery; E83.42 Hypomagnesemia; K44.9 Diaphragmatic hernia without obstruction or gangrene; E87.6 Hypokalemia; K29.70 Gastritis, unspecified, without bleeding; F10.10 Alcohol abuse, uncomplicated; K31.89 Other diseases of stomach and duodenum; R31.0 Gross hematuria; K76.0 Fatty (change of) liver, not elsewhere classified; N28.1 Cyst of kidney, acquired; N47.5 Adhesions of prepuce and glans penis; N31.9 Neuromuscular dysfunction of bladder, unspecified; R33.8 Other retention of urine; Z79.82 Long term (current) use of aspirin; Z79.84 Long term (current) use of oral hypoglycemic drugs; Z79.890 Hormone replacement therapy; Z82.49 Family history of ischemic heart disease and other diseases of the circulatory system; Z83.3 Family history of diabetes mellitus; E66.9 Obesity, unspecified; Z68.31 Body mass index [BMI] 31.0-31.9, adult
CPT/HCPCS: 36415; 43246; 70450; 70486; 70496; 70498; 70551; 71045; 71260; 74177; 74230; 74420; 74470; 76604; 80048; 80053; 80061; 80320; 80329; 81001; 82550; 82607; 82746; 82805; 82948; 83036; 83519; 83540; 83605; 83615; 83690; 83735; 84100; 84443; 84466; 84484; 85014; 85018; 85025; 85045; 85610; 85730; 86255; 86850; 86900; 86920; 87040; 87086; 88300; 88305; 88342; 93005; 93306; 93880; 94640; 94799; 96372; 99252; 99284; C1758; C1769; C2617; J0690; J0696; J1308; J1650; J1756; J1938; J2003; J2371; J2405; J2470; J2543; J2765; J3411; J3475; J3480; J7030; J7040; J7050; J7070; P9016; P9017; P9047; Q9967

== ENCOUNTER 2024-11-19 20:54 | Emergency (ER) | payer OTHER ==
[~2024-11-19] VITALS: Ht 154.9 cm; Wt 76.7 kg
[2024-11-19 20:54] VITALS: TEMP 98.8
[2024-11-19] MEDS ORDERED: SODIUM CHLORIDE 0.9% 1000ML 1,000 ML ONE (21:06)
[2024-11-19] MEDS ORDERED: ADENOSINE 6MG/2ML 2 ML ONE (21:06)
[2024-11-19] MEDS: ADENOSINE 6 MG/2 ML VIAL IV ONE (21:15)
[2024-11-19 21:22] LABS: BASOPHILS # (AUTO) 0.1 (0.0-0.1); BASOPHILS % 0.4 % (0.0-1.0); EOSINOPHILS # (AUTO) 0.1 (0.0-0.4); EOSINOPHILS % 1.1 % (0.0-6.0); HEMATOCRIT 29.7 % (38.2-49.6); HEMOGLOBIN 9.9 g/dL (14.0-18.0); LYMPHOCYTES # (AUTO) 1.8 (1.0-3.2); LYMPHOCYTES % 15.2 % (18.0-39.1); MEAN CORPUSCULAR HEMOGLOBIN 33.6 pg (28-32); MEAN CORPUSCULAR HGB CONC 33.3 g/dL (31-35); MEAN CORPUSCULAR VOLUME 100.7 fL (81-99); MONOCYTES # (AUTO) 1.6 (0.2-0.8); MONOCYTES % 13.6 % (4.4-11.3); NEUTROPHILS # (AUTO) 8.2 (2.1-6.9); NEUTROPHILS % 68.6 % (38.7-80.0); PLATELET COUNT 272 x10e3/uL (140-360); RED BLOOD COUNT 2.95 x10e6/uL (4.3-5.7); RED CELL DISTRIBUTION WIDTH 16.2 % (11.7-14.4); WHITE BLOOD COUNT 11.97 x10e3/uL (4.8-10.8)
[2024-11-19 21:24] LABS: BILIRUBIN,URINE NEGATIVE (NEGATIVE); CLARITY,URINE SL CLOUDY (CLEAR); COLOR,URINE YELLOW (YELLOW); GLUCOSE, URINE NEGATIVE (NEGATIVE); KETONES,URINE NEGATIVE (NEGATIVE); LEUKOCYTE ESTERASE ,URINE SMALL (NEGATIVE); NITRITE,URINE NEGATIVE (NEGATIVE); PH,URINE 6 (5 - 7); PROTEIN,URINE DIPSTICK 2+ (NEGATIVE); URINE UROBILINOGEN 0.2 mg/dL (0.2 - 1)
[2024-11-19] MEDS: SODIUM CHLORIDE 0.9% 1000ML 1,000 ML IV ONE (21:25)
[2024-11-19 21:43] LABS: BACTERIA,URINE MANY /HPF; EPITHELIAL CELLS,URINE FEW /LPF
[2024-11-19 22:54] LABS: ALBUMIN 2.2 g/dL (3.5-5.0); ALBUMIN/GLOBULIN RATIO 0.4 (0.8-2.0); ANION GAP 13.2 mmol/L (8-16); BILIRUBIN,TOTAL 0.9 mg/dL (0.2-1.2); CREATININE, SERUM 0.72 mg/dL (0.72-1.25); POTASSIUM 4.2 mmol/L (3.5-5.1); TOTAL PROTEIN 7.3 g/dL (6.5-8.1)
[2024-11-19 23:00] LABS: TROPONIN I 0.052 ng/mL (0-0.300)
[2024-11-19] MEDS ORDERED: CEFDINIR300 MG PEG (23:53)
[2024-11-20 01:00] VITALS: PULSE 91; RESP 20
[2024-11-20 02:11] VITALS: BP 99/58; PULSE 91; RESP 20; O2SAT 99
== END 2024-11-20 02:01 ==
LOC: ER 21:07
DX: I47.10 Supraventricular tachycardia, unspecified (principal); N39.0 Urinary tract infection, site not specified; I10 Essential (primary) hypertension; E11.9 Type 2 diabetes mellitus without complications; K76.9 Liver disease, unspecified; R94.31 Abnormal electrocardiogram [ECG] [EKG]
CPT/HCPCS: 36415; 71045; 80053; 81001; 82550; 84484; 85025; 87086; 93005 ×2; 99284; J0153; J0696; J7030

== ENCOUNTER 2024-12-19 09:14 | Inpatient (IN) | payer MEDICARE ==
[~2024-12-19] VITALS: Ht 170.2 cm; Wt 76.2 kg
[2024-12-19] VITALS (9 sets, daily range): BP systolic 94–114; BP diastolic 56–74; PULSE 71–109; RESP 15–21; TEMP 98.3–99.2; O2SAT 95–100
[~2024-12-19 09:14] MED LIST changes: +CEFDINIR300 MG PEG
[2024-12-19] MEDS: MEROPENEM 1 GM in SODIUM CHLORIDE 0.9% 100 ML IV ONE (10:30)
[2024-12-19] MEDS: SODIUM CHLORIDE 0.9% 1000ML 1,000 ML IV STA (10:30)
[2024-12-19 10:37] LABS: BASOPHILS % 0.1 % (0.0-1.0); EOSINOPHILS % 0.0 % (0.0-6.0); LYMPHOCYTES % 4.2 % (18.0-39.1); MONOCYTES % 9.0 % (4.4-11.3); NEUTROPHILS % 86.1 % (38.7-80.0); RED CELL DISTRIBUTION WIDTH 14.9 % (11.7-14.4)
[2024-12-19 11:14] LABS: EST GLOMERULAR FILTRATION RATE 52.0 ML/MIN (>=60)
[2024-12-19 11:16] LABS: INR 1.12
[2024-12-19] MEDS: Vancomycin IV 1 GM in SODIUM CHLORIDE 0.9% 250ML 250 ML IV ONE (11:40)
[2024-12-19 11:44] LABS: LEUKOCYTE ESTERASE ,URINE LARGE (NEGATIVE); PROTEIN,URINE DIPSTICK >=300 (NEGATIVE)
[2024-12-19 11:45] LABS: EPITHELIAL CELLS,URINE FEW /LPF; URINE UROBILINOGEN 0.2 mg/dL (0.2 - 1); WBC,URINE (MAN) >50 /HPF (0-5)
[2024-12-19 12:05] LABS: BAND NEUTROPHILS % (MANUAL) 1 %; LYMPHOCYTES % (MANUAL) 7 % (19-48); MONOCYTES % (MANUAL) 5 % (3.4-9.0); NEUTROPHILS % (MANUAL) 87 % (40-74); PLATELET ESTIMATE ADEQUATE; PLATELET MORPHOLOGY COMMENT NORMAL; RBC MORPHOLOGY COMMENT NORMAL
[2024-12-19] MEDS: SODIUM CHLORIDE 0.9% 500ML 500 ML IV ONE (12:40)
[2024-12-19] MEDS: ACETAMINOPHEN 1000 MG/100 ML IV STA (12:40)
[2024-12-19] MEDS ORDERED: SODIUM CHLORIDE 0.9% 1000ML 1,000 ML ONE (13:37)
[2024-12-19] MEDS: SODIUM CHLORIDE 0.9% 1000ML 1,980 ML IV SCH (14:49)
[2024-12-19] MEDS: SODIUM CHLORIDE 0.9% 1000ML 1,000 ML IV SCH (14:56)
[2024-12-19] MEDS ORDERED: SODIUM CHLORIDE 0.9% 1000ML 1,000 ML IV SCH (15:00)
[2024-12-19] MEDS: NOREPINEPHRINE 8 MG/D5W 250 ML 250 ML IV SCH (15:11)
[2024-12-19] MEDS ORDERED: HYDRALAZINE HCL 20 MG/ML VIAL IV PRN (15:15)
[2024-12-19] MEDS ORDERED: DOCUSATE SODIUM 100 MG CAP PO PRN (15:15)
[2024-12-19] MEDS ORDERED: DIPHENHYDRAMINE HCL 25 MG CAP PO PRN (15:15)
[2024-12-19] MEDS ORDERED: ONDANSETRON HCL INJ 2MG/ML 2ML 2 MG/ML VIAL IV PRN (15:15)
[2024-12-19] MEDS ORDERED: LIDOCAINE 4% PATCH TP PRN (15:15)
[2024-12-19] MEDS ORDERED: SIMETHICONE 80 MG CHEW PO PRN (15:15)
[2024-12-19] MEDS ORDERED: BENZONATATE 100 MG CAP PO PRN (15:15)
[2024-12-19] MEDS ORDERED: ALBUTEROL/IPRATROPIUM 3 ML NEB NEB PRN (15:15)
[2024-12-19] MEDS ORDERED: POTASSIUM CHLORIDE 20 MEQ TAB CR PO PRN (15:15)
[2024-12-19] MEDS ORDERED: DEXTROSE 50% SYRINGE 50 ML IV PRN (15:15)
[2024-12-19] MEDS ORDERED: MELATONIN 5 MG TABLET PO PRN (15:15)
[2024-12-19] MEDS ORDERED: MEROPENEM 1 GM in SODIUM CHLORIDE 0.9% 100 ML IV SCH (18:00)
[2024-12-19] MEDS: LACTATED RINGER'S 1,000 ML INJ ONE (18:13)
[2024-12-19] MEDS: ENOXAPARIN SOD INJ 40 MG/0.4 ML SYR SC SCH (22:35)
[2024-12-19] MEDS: MEROPENEM 1 GM in SODIUM CHLORIDE 0.9% 100 ML IV SCH (22:36)
[2024-12-19] MEDS: ACETAMINOPHEN 325 MG TAB PO PRN (22:37)
[2024-12-19] MEDS: ATORVASTATIN 10 MG TAB PO SCH (22:39)
[2024-12-20] VITALS (83 sets, daily range): BP systolic 78–138; BP diastolic 44–107; PULSE 90–154; RESP 13–32; TEMP 97–103.2; O2SAT 91–100
[2024-12-20 05:25] LABS: BASOPHILS % 0.1 % (0.0-1.0); EOSINOPHILS % 0.0 % (0.0-6.0); LYMPHOCYTES % 2.0 % (18.0-39.1); MONOCYTES % 4.9 % (4.4-11.3); NEUTROPHILS % 87.0 % (38.7-80.0); RED CELL DISTRIBUTION WIDTH 14.8 % (11.7-14.4)
[2024-12-20 06:01] LABS: EST GLOMERULAR FILTRATION RATE 60.0 ML/MIN (>=60)
[2024-12-20] MEDS ORDERED: PANTOPRAZOLE SOD 40 MG TABEC PO SCH (07:30)
[2024-12-20] MEDS: INSULIN REGULAR, HUMAN 100 UNIT/1 ML SQ SCH (07:30)
[2024-12-20] MEDS ORDERED: DEXTROSE 50% SYRINGE 50 ML IV PRN (07:30)
[2024-12-20 08:05] LABS: ABG BASE EXCESS -9.0 mmol/L (-2 - 3); ABG HCO3 15 mmol/L (22-26); ABG OXYGEN SATURATION 95.0 % (95-98); ABG PCO2 23 mmHg (35-45); ABG PH 7.44 (7.35-7.45); ABG PO2 70 mmHg (80-105); ABG TCO2 16
[2024-12-20] MEDS: SODIUM BICARBONATE 8.4% IV SCH (08:19)
[2024-12-20] MEDS: STERILE WATER IV SCH (08:19)
[2024-12-20 09:26] LABS: PHOSPHORUS 2.8 MG/DL (2.3-4.7)
[2024-12-20 09:48] LABS: CHOL/HDL RATIO 3.5 (3.9-4.7); LDL CHOLESTEROL 35.0 MG/DL (60-130)
[2024-12-20 11:03] LABS: BAND NEUTROPHILS % (MANUAL) 10 %; LYMPHOCYTES % (MANUAL) 2 % (19-48); MONOCYTES % (MANUAL) 6 % (3.4-9.0); NEUTROPHILS % (MANUAL) 82 % (40-74); PLATELET ESTIMATE SLIGHTLY DECREASED; PLATELET MORPHOLOGY COMMENT NORMAL; RBC MORPHOLOGY COMMENT ABNORMAL
[2024-12-20 15:29] LABS: EST GLOMERULAR FILTRATION RATE 81.0 ML/MIN (>=60)
[2024-12-20] MEDS ORDERED: MESTINON60 MG PO (18:51)
[2024-12-20] MEDS ORDERED: FLOMAX0.4 MG PEG (20:58)
[2024-12-21] VITALS (62 sets, daily range): BP systolic 87–147; BP diastolic 53–121; PULSE 91–120; RESP 14–33; TEMP 98.2–101.6; O2SAT 95–100
[2024-12-21 07:05] LABS: BASOPHILS % 0.4 % (0.0-1.0); EOSINOPHILS % 0.1 % (0.0-6.0); LYMPHOCYTES % 4.2 % (18.0-39.1); MONOCYTES % 6.1 % (4.4-11.3); NEUTROPHILS % 88.4 % (38.7-80.0); RED CELL DISTRIBUTION WIDTH 15.2 % (11.7-14.4)
[2024-12-21 07:32] LABS: EST GLOMERULAR FILTRATION RATE 69.0 ML/MIN (>=60)
[2024-12-21] MEDS: SODIUM CHLORIDE 0.9% 1000ML 1,000 ML IV ONE (08:53)
[2024-12-21] MEDS: COLLAGENASE 5 GM TUBE TOP SCH (09:00)
[2024-12-21 12:42] LABS: LYMPHOCYTES % (MANUAL) 4 % (19-48); MONOCYTES % (MANUAL) 5 % (3.4-9.0); NEUTROPHILS % (MANUAL) 91 % (40-74); PLATELET ESTIMATE SLIGHTLY DECREASED; PLATELET MORPHOLOGY COMMENT NORMAL; RBC MORPHOLOGY COMMENT NORMAL
[2024-12-21] MEDS: MUPIROCIN 2% OINT 22 GM TUBE TOP SCH (15:57)
[2024-12-22] VITALS (26 sets, daily range): BP systolic 94–136; BP diastolic 53–95; PULSE 88–109; RESP 16–23; TEMP 98.2–100.1; O2SAT 95–99
[2024-12-22] MEDS: SODIUM CHLORIDE 0.9% 1000ML 1,000 ML ONE (01:14)
[2024-12-22 06:52] LABS: BASOPHILS % 0.6 % (0.0-1.0); EOSINOPHILS % 0.3 % (0.0-6.0); LYMPHOCYTES % 6.7 % (18.0-39.1); MONOCYTES % 10.9 % (4.4-11.3); NEUTROPHILS % 81.1 % (38.7-80.0); RED CELL DISTRIBUTION WIDTH 15.2 % (11.7-14.4)
[2024-12-22 07:10] LABS: EST GLOMERULAR FILTRATION RATE 74.0 ML/MIN (>=60)
[2024-12-23] VITALS (25 sets, daily range): BP systolic 94–159; BP diastolic 60–94; PULSE 83–108; RESP 14–21; TEMP 97.7–100; O2SAT 91–100
[2024-12-23 05:05] LABS: BASOPHILS % 0.2 % (0.0-1.0); EOSINOPHILS % 0.8 % (0.0-6.0); LYMPHOCYTES % 10.6 % (18.0-39.1); MONOCYTES % 15.5 % (4.4-11.3); NEUTROPHILS % 72.3 % (38.7-80.0); RED CELL DISTRIBUTION WIDTH 15.7 % (11.7-14.4)
[2024-12-23 05:33] LABS: EST GLOMERULAR FILTRATION RATE 71.0 ML/MIN (>=60)
[2024-12-23] MEDS: SODIUM BICARBONATE 8.4% VIAL 50 ML in SODIUM CHLORIDE 0.45% 1,000 ML IV ONE (09:49)
[2024-12-23] MEDS: TAMSULOSIN HCL 0.4 MG CAP PEG SCH (23:05)
[2024-12-24] VITALS (14 sets, daily range): BP systolic 105–127; BP diastolic 59–76; PULSE 72–101; RESP 18–20; TEMP 97.7–99.1; O2SAT 94–100
[2024-12-24 06:36] LABS: BASOPHILS % 0.2 % (0.0-1.0); EOSINOPHILS % 0.9 % (0.0-6.0); LYMPHOCYTES % 12.5 % (18.0-39.1); MONOCYTES % 13.3 % (4.4-11.3); NEUTROPHILS % 72.0 % (38.7-80.0); RED CELL DISTRIBUTION WIDTH 15.7 % (11.7-14.4)
[2024-12-24 07:14] LABS: EST GLOMERULAR FILTRATION RATE 76.0 ML/MIN (>=60)
[2024-12-25] VITALS (7 sets, daily range): BP systolic 117–129; BP diastolic 64–77; PULSE 74–105; RESP 17–22; TEMP 98.4–98.9; O2SAT 95–98
[2024-12-25 08:09] LABS: ABG BASE EXCESS -9.0 mmol/L (-2 - 3); ABG HCO3 15 mmol/L (22-26); ABG OXYGEN SATURATION 95.0 % (95-98); ABG PCO2 23 mmHg (35-45); ABG PH 7.44 (7.35-7.45); ABG PO2 70 mmHg (80-105); ABG TCO2 16
[2024-12-26] VITALS (10 sets, daily range): BP systolic 114–143; BP diastolic 65–84; PULSE 98–110; RESP 16–18; TEMP 97.5–98.9; O2SAT 94–98
[2024-12-27] VITALS (13 sets, daily range): BP systolic 102–158; BP diastolic 52–95; PULSE 82–110; RESP 16–19; TEMP 97.3–98.4; O2SAT 95–100
[2024-12-27 07:07] LABS: BASOPHILS % 0.4 % (0.0-1.0); EOSINOPHILS % 1.7 % (0.0-6.0); LYMPHOCYTES % 16.3 % (18.0-39.1); MONOCYTES % 7.2 % (4.4-11.3); NEUTROPHILS % 73.8 % (38.7-80.0); RED CELL DISTRIBUTION WIDTH 16.1 % (11.7-14.4)
[2024-12-27 07:25] LABS: EST GLOMERULAR FILTRATION RATE 89.0 ML/MIN (>=60)
[2024-12-27] MEDS ORDERED: FENTANYL CITRATE/PF 100MCG/2 ML INJ ONE (15:30)
[2024-12-27] MEDS ORDERED: PROPOFOL IV EMULSION 10 MG/ML 20 ML VIAL ONE (15:31)
[2024-12-27] MEDS ORDERED: LIDOCAINE HCL 2% LOCAL INJ 5 ML SDV VIAL INJ ONE (15:31)
[2024-12-27] MEDS ORDERED: ETOMIDATE 40 MG/ 20ML VIAL IV ONE (15:32)
[2024-12-27] MEDS ORDERED: PHENYLEPHRINE HCL 1% 10 MG/ML VIAL ONE ×2 (15:40→15:56)
[2024-12-27] MEDS ORDERED: MIDAZOLAM HCL 2 MG/2 ML VIAL ONE (15:47)
[2024-12-27] MEDS ORDERED: HYDROCORTISONE SOD SUCCINATE 100 MG VIAL ONE (15:51)
[2024-12-27] MEDS ORDERED: GENTAMICIN SULFATE 40 MG/ML 2 ML VIAL ONE (15:56)
[2024-12-27] MEDS ORDERED: KETAMINE HCL INJ 50 MG/ML 10 ML VIAL ONE (16:15)
[2024-12-27] MEDS ORDERED: GLYCOPYRROLATE INJ 0.2 MG/ML VIAL ONE (16:15)
[2024-12-27] MEDS ORDERED: EPINEPHRINE HCL 1:1000 1ML 1 MG/ML AMP ONE (16:22)
[2024-12-27] MEDS: DEXTROSE 5% 1,000 ML IV SCH ×2 (17:30→23:45)
[2024-12-28] VITALS (9 sets, daily range): BP systolic 99–121; BP diastolic 53–73; PULSE 86–96; RESP 17–21; TEMP 97.3–97.7; O2SAT 95–100
[2024-12-28] MEDS: SODIUM CHLORIDE 0.9% 250ML 250 ML ONE (09:37)
[2024-12-28 11:13] LABS: EST GLOMERULAR FILTRATION RATE 59.0 ML/MIN (>=60)
[2024-12-28] MEDS: CEFAZOLIN SODIUM 2 GM in SODIUM CHLORIDE 0.9% 100 ML IV SCH (14:58)
[2024-12-28] MEDS: INSULIN GLARGINE 100 UNITS/ML VIAL SQ SCH (21:08)
[2024-12-29] VITALS (11 sets, daily range): BP systolic 100–141; BP diastolic 53–78; PULSE 90–97; RESP 18–20; TEMP 97.4–98.4; O2SAT 96–99
[2024-12-29 06:13] LABS: BASOPHILS % 0.3 % (0.0-1.0); EOSINOPHILS % 1.2 % (0.0-6.0); LYMPHOCYTES % 17.5 % (18.0-39.1); MONOCYTES % 5.9 % (4.4-11.3); NEUTROPHILS % 74.8 % (38.7-80.0); RED CELL DISTRIBUTION WIDTH 16.1 % (11.7-14.4)
[2024-12-29 06:40] LABS: EST GLOMERULAR FILTRATION RATE 74.0 ML/MIN (>=60)
[2024-12-29] MEDS ORDERED: Lantus SQ (14:34)
[2024-12-29] MEDS ORDERED: LOPRESSOR25 MG PO (14:34)
[2024-12-29] MEDS ORDERED: SODIUM CHLORI1000 M2 PO (14:34)
[2024-12-29] MEDS ORDERED: VITAMIN B-1100 M1 PO (14:34)
[2024-12-29] MEDS ORDERED: FERROUS SULFAT325 M1 PO (14:34)
[2024-12-29] MEDS ORDERED: COLACE100 MG/10 PO (14:34)
[2024-12-29] MEDS ORDERED: TAMSULOSIN PO (14:34)
[2024-12-30] VITALS (9 sets, daily range): BP systolic 91–129; BP diastolic 52–73; PULSE 67–95; RESP 18–20; TEMP 97.7–98.4; O2SAT 94–100
[2024-12-30 06:51] LABS: EST GLOMERULAR FILTRATION RATE 80.0 ML/MIN (>=60)
[2024-12-31] VITALS (11 sets, daily range): BP systolic 93–121; BP diastolic 58–76; PULSE 81–101; RESP 16–20; TEMP 97.5–98.6; O2SAT 96–100
[2024-12-31 07:28] LABS: BASOPHILS % 0.2 % (0.0-1.0); EOSINOPHILS % 1.9 % (0.0-6.0); LYMPHOCYTES % 22.1 % (18.0-39.1); MONOCYTES % 8.2 % (4.4-11.3); NEUTROPHILS % 67.2 % (38.7-80.0); RED CELL DISTRIBUTION WIDTH 15.9 % (11.7-14.4)
[2024-12-31 08:10] LABS: EST GLOMERULAR FILTRATION RATE 90.0 ML/MIN (>=60)
[2024-12-31 08:30] LABS: EOSINOPHILS % (MANUAL) 3 % (0-7); LYMPHOCYTES % (MANUAL) 14 % (19-48); MONOCYTES % (MANUAL) 3 % (3.4-9.0); NEUTROPHILS % (MANUAL) 79 % (40-74); REACTIVE LYMPHOCYTES 1
[2024-12-31 08:31] LABS: PLATELET ESTIMATE ADEQUATE; PLATELET MORPHOLOGY COMMENT NORMAL
[2025-01-01] VITALS (9 sets, daily range): BP systolic 93–113; BP diastolic 59–69; PULSE 68–101; RESP 16–20; TEMP 97.3–98.3; O2SAT 94–100
[2025-01-01] MEDS: DOCUSATE SODIUM LIQD 100 MG/10 ML UDC GT PRN (17:42)
== END 2025-01-01 20:30 | DRG 659 ==
LOC: ER 09:18 → ERHOLD 12:39 → ICU 20:36 → MED/SURG3 12-23 21:45
PROVIDERS: ADMIT Internal Medicine; ATTEND Internal Medicine
PROC: 06HY33Z Insertion of Infusion Device into Lower Vein, Percutaneous Approach (ICD-10-PCS; principal; 2024-12-19)
PROC: 3E0333Z Introduction of Anti-inflammatory into Peripheral Vein, Percutaneous Approach (ICD-10-PCS; 2024-12-19)
PROC: 3E043XZ Introduction of Vasopressor into Central Vein, Percutaneous Approach (ICD-10-PCS; 2024-12-19)
PROC: 4A133R1 Monitoring of Arterial Saturation, Peripheral, Percutaneous Approach (ICD-10-PCS; 2024-12-20)
PROC: 02HV33Z Insertion of Infusion Device into Superior Vena Cava, Percutaneous Approach (ICD-10-PCS; 2024-12-20)
PROC: 0T788DZ Dilation of Bilateral Ureters with Intraluminal Device, Via Natural or Artificial Opening Endoscopic (ICD-10-PCS; 2024-12-27)
PROC: 0TCB8ZZ Extirpation of Matter from Bladder, Via Natural or Artificial Opening Endoscopic (ICD-10-PCS; 2024-12-27)
PROC: 0TP98DZ Removal of Intraluminal Device from Ureter, Via Natural or Artificial Opening Endoscopic (ICD-10-PCS; 2024-12-27)
PROC: 0TC78ZZ Extirpation of Matter from Left Ureter, Via Natural or Artificial Opening Endoscopic (ICD-10-PCS; 2024-12-27)
PROC: 0TP98DZ Removal of Intraluminal Device from Ureter, Via Natural or Artificial Opening Endoscopic (ICD-10-PCS; 2024-12-27)
PROC: 0TC68ZZ Extirpation of Matter from Right Ureter, Via Natural or Artificial Opening Endoscopic (ICD-10-PCS; 2024-12-27)
PROC: 0DJDXZZ Inspection of Lower Intestinal Tract, External Approach (ICD-10-PCS; 2024-12-27)
PROC: 0T9B70Z Drainage of Bladder with Drainage Device, Via Natural or Artificial Opening (ICD-10-PCS; 2024-12-27)
DX: T83.511A Infection and inflammatory reaction due to indwelling urethral catheter, initial encounter (principal); A41.50 Gram-negative sepsis, unspecified; L89.313 Pressure ulcer of right buttock, stage 3; R65.21 Severe sepsis with septic shock; J69.0 Pneumonitis due to inhalation of food and vomit; G92.8 Other toxic encephalopathy; D68.9 Coagulation defect, unspecified; E44.0 Moderate protein-calorie malnutrition; E87.20 Acidosis, unspecified; N17.9 Acute kidney failure, unspecified; K76.6 Portal hypertension; E87.1 Hypo-osmolality and hyponatremia; N12 Tubulo-interstitial nephritis, not specified as acute or chronic; N13.8 Other obstructive and reflux uropathy; N20.1 Calculus of ureter; N40.1 Benign prostatic hyperplasia with lower urinary tract symptoms; N39.0 Urinary tract infection, site not specified; L89.152 Pressure ulcer of sacral region, stage 2; I12.9 Hypertensive chronic kidney disease with stage 1 through stage 4 chronic kidney disease, or unspecified chronic kidney disease; E11.22 Type 2 diabetes mellitus with diabetic chronic kidney disease; E11.40 Type 2 diabetes mellitus with diabetic neuropathy, unspecified; N18.31 Chronic kidney disease, stage 3a; G62.1 Alcoholic polyneuropathy; D63.1 Anemia in chronic kidney disease; G20.C Parkinsonism, unspecified; F02.80 Dementia in other diseases classified elsewhere, unspecified severity, without behavioral disturbance, psychotic disturbance, mood disturbance, and anxiety; R13.12 Dysphagia, oropharyngeal phase; E78.5 Hyperlipidemia, unspecified; K21.00 Gastro-esophageal reflux disease with esophagitis, without bleeding; I65.22 Occlusion and stenosis of left carotid artery; K29.00 Acute gastritis without bleeding; K74.60 Unspecified cirrhosis of liver; I71.21 Aneurysm of the ascending aorta, without rupture; K31.89 Other diseases of stomach and duodenum; R33.8 Other retention of urine; N23 Unspecified renal colic; R31.29 Other microscopic hematuria; E86.0 Dehydration; N21.0 Calculus in bladder; R53.81 Other malaise; B96.4 Proteus (mirabilis) (morganii) as the cause of diseases classified elsewhere; Z68.26 Body mass index [BMI] 26.0-26.9, adult; Y84.6 Urinary catheterization as the cause of abnormal reaction of the patient, or of later complication, without mention of misadventure at the time of the procedure; Z79.82 Long term (current) use of aspirin; Z79.890 Hormone replacement therapy; Z96.0 Presence of urogenital implants; Z93.1 Gastrostomy status; Z83.3 Family history of diabetes mellitus; Z82.49 Family history of ischemic heart disease and other diseases of the circulatory system
CPT/HCPCS: 36415; 36569; 36600; 71045; 74176; 74230; 74420; 76770; 80048; 80053; 80061; 81001; 81003; 82140; 82805; 82948; 83605; 83735; 83970; 84100; 84550; 85014; 85018; 85025; 85610; 85730; 87040; 87071; 87086; 87186; 87205; 88300; 93005; 93306; 94799; 96372; 99252; 99284; C1758; C1766; C2617; J0169; J0696; J1580; J1650; J1720; J1815; J2003; J2185; J2250; J2371; J2470; J3373; J7030; J7040; J7050; J7070

== ENCOUNTER → 2025-02-13 | Outpatient (REF) | payer MEDICARE ==
[~2025-02-13] MED LIST changes: +COLACE100 MG/10 PO; +FERROUS SULFAT325 M1 PO; +FLOMAX0.4 MG PEG; +LOPRESSOR25 MG PO; +Lantus SQ; +MESTINON60 MG PO; +SODIUM CHLORI1000 M2 PO; +TAMSULOSIN PO; +VITAMIN B-1100 M1 PO
== END ==
LOC: US 10:52
PROVIDERS: ATTEND Nurse Practitioner
DX: K74.69 Other cirrhosis of liver (principal); K82.9 Disease of gallbladder, unspecified
CPT/HCPCS: 76700

== ENCOUNTER 2025-02-24 16:06 | Emergency (ER) | payer MEDICARE ==
[~2025-02-24] VITALS: Ht 170.2 cm; Wt 76.2 kg
[2025-02-24 16:25] VITALS: PULSE 98; RESP 14; TEMP 98.4
[2025-02-24 18:48] LABS: LEUKOCYTE ESTERASE ,URINE LARGE (NEGATIVE); PROTEIN,URINE DIPSTICK >=300 (NEGATIVE); URINE UROBILINOGEN 0.2 mg/dL (0.2 - 1); WBC,URINE (MAN) >50 /HPF (0-5)
[2025-02-24] MEDS ORDERED: CEFDINIR250 MG/5 M PEG (18:48)
[2025-02-24 18:49] LABS: TRIPLE PHOSPHATE CRYSTAL,UR FEW
[2025-02-24 18:50] LABS: CALCIUM OXALATE CRYSTALS,UR FEW (FEW)
[2025-02-24 19:27] VITALS: BP 115/73; PULSE 103; RESP 18; TEMP 98.9; O2SAT 99
[2025-02-25] MEDS ORDERED: BANATROL PLUS1 EACH PEG (20:32)
[2025-02-25] MEDS ORDERED: LANTUS 3ML100 UNITS/ SC (20:35)
[2025-02-25] MEDS ORDERED: JUVEN PACKET1 EACH PEG (20:35)
[2025-02-25] MEDS ORDERED: INSULIN AS100 UNIT/3 SC (20:35)
[2025-02-25] MEDS ORDERED: SODIUM CHLORI1000 MG PO (20:39)
[2025-02-25] MEDS ORDERED: ENULOSE10 GM/15 M PO (20:39)
[2025-02-26] MEDS ORDERED: XIFAXAN550 MG PO (16:13)
== END 2025-02-24 19:10 | disposition home or self-care (01) ==
LOC: ER 18:04
DX: Z46.6 Encounter for fitting and adjustment of urinary device (principal); N39.0 Urinary tract infection, site not specified; I10 Essential (primary) hypertension; E11.9 Type 2 diabetes mellitus without complications; K76.9 Liver disease, unspecified; Z93.1 Gastrostomy status
CPT/HCPCS: 51700; 81001; 87086; 87186; 99283